=== PATIENT | male | born 1985 | race Caucasian/White ===

== ENCOUNTER → 2016-07-09 | Outpatient (CLI) | payer OTHER ==
[~2016-07-09] VITALS: Ht 175.3 cm; Wt 74.7 kg
[~2016-07-09] MED LIST: CLAR1TAB2 PO; FLON1SPR; LIDOCAINE 2% INJ 100 MG/5 ML SDV (FOR ANES.) As Ordered ONE; NS 1,000 ML IV SCH; OMEP40CA2 PO; PROPOFOL 200 MG/20 ML VIAL As Ordered ONE
--- NOTE | 2016-07-09 14:00 | ROOR ---
Patient Name: Max Wiley Procedure Date: 07/09/2016 1:34 PM Date of : 1985 Age: 31 Room: [facility] Gender: Male Note Status: Finalized Procedure: Upper GI endoscopy Indications: Heartburn, Globus sensation Providers: Boni MILLER MD Referring MD: EDGAR Hughes Requesting Provider: Medicines: Monitored Anesthesia Care Complications: No immediate complications. Procedure: Pre-Anesthesia Assessment: - The heart rate, respiratory rate, oxygen saturations, blood pressure, adequacy of pulmonary ventilation, and response to care were monitored throughout the procedure. The Endoscope was introduced through the mouth, and advanced to the second part of duodenum. The upper GI endoscopy was accomplished without difficulty. The patient tolerated the procedure well. Findings: The esophagus was normal. The stomach was normal. The examined duodenum was normal. Impression: - Normal esophagus. - Normal stomach. - Normal examined duodenum. - No specimens collected. Recommendation: - Continue present medications. - Increase Prilosec (omeprazole) 40 mg to TWICE a day - (the script was sent to your pharmacy on file) Boni Miller MD Boni MILLER MD 07/09/2016 2:00:10 PM This report has been signed electronically. Number of Addenda: 0 Note Initiated On: 07/09/2016 1:34 PM Estimated Blood Loss: Estimated blood loss: none.
[2016-07-09 14:54] VITALS: BP 114/64
== END | disposition home or self-care (01) ==
LOC: M OPP 12:41
PROVIDERS: ATTEND Internal Medicine Gastroenterology
DX: R12 Heartburn (principal); F45.8 Other somatoform disorders; F17.228 Nicotine dependence, chewing tobacco, with other nicotine-induced disorders; J45.909 Unspecified asthma, uncomplicated; Z79.899 Other long term (current) drug therapy; Z88.2 Allergy status to sulfonamides

== ENCOUNTER → 2017-06-15 | Outpatient (REF) | payer OTHER ==
[~2017-06-15] MED LIST changes: -LIDOCAINE 2% INJ 100 MG/5 ML SDV (FOR ANES.) As Ordered ONE; -NS 1,000 ML IV SCH; -PROPOFOL 200 MG/20 ML VIAL As Ordered ONE
[2017-06-15 12:22] LABS: ALBUMIN/GLOBULIN RATIO 1.38 (1.00-1.93); ALKALINE PHOSPHATASE 51 U/L (45-117); ALT/SGPT 20 U/L (12-78); ANION GAP 6 MEQ/L (8-16); AST/SGOT 27 U/L (7-37); BILIRUBIN,TOTAL 0.4 MG/DL (0.2-1.0); BLOOD UREA NITROGEN 21 MG/DL (7-18); CALCIUM LEVEL 8.8 MG/DL (8.5-10.1); CARBON DIOXIDE LEVEL 31 MEQ/L (21-32); CHLORIDE LEVEL 106 MEQ/L (98-107); CHOLESTEROL LEVEL 248 MG/DL (<200); CREATININE FOR GFR 1.03 MG/DL (0.70-1.30); GLOMERULAR FILTRATION RATE > 60.0 (>60); GLUCOSE, FASTING 88 MG/DL (70-105); POTASSIUM SERUM 4.3 MEQ/L (3.5-5.1); SODIUM LEVEL 143 MEQ/L (136-145); TOTAL PROTEIN 6.9 GM/DL (6.4-8.2); TRIGLYCERIDES LEVEL 118 MG/DL (<150)
== END ==
LOC: M SFHCPLAZ 08:00
PROVIDERS: ATTEND Family Medicine
DX: R79.89 Other specified abnormal findings of blood chemistry (principal); E78.5 Hyperlipidemia, unspecified

== ENCOUNTER → 2017-10-31 | Outpatient (REF) | payer OTHER ==
[2017-10-31 13:32] LABS: HIV 1&2 SCREEN CENTAUR NEGATIVE (NEGATIVE)
[2017-10-31 14:05] LABS: CHLAMYDIA DNA AMPLIFICATION NEGATIVE (NEGATIVE); GC DNA AMPLIFICATION NEGATIVE (NEGATIVE)
[2017-11-01 10:11] LABS: HSV TYPE I IgG SPECIFIC <0.91 index (0.00-0.90); HSV TYPE II IgG SPECIFIC <0.91 index (0.00-0.90)
== END ==
LOC: M SFHCPLAZ 08:08
DX: Z71.1 Person with feared health complaint in whom no diagnosis is made (principal)
CPT/HCPCS: 86695

== ENCOUNTER 2018-10-06 12:43 | Day surgery (SDC) | payer OTHER ==
[~2018-10-06] VITALS: Ht 172.7 cm; Wt 64.9 kg
[~2018-10-06 12:43] MED LIST changes: +NS 1,000 ML IV ONE
--- NOTE | 2018-10-06 13:41 | ROOR ---
Patient Name: Max Wiley Procedure Date: 10/06/2018 1:22 PM Date of : 1985 Age: 33 Room: [facility] Gender: Male Note Status: Finalized Procedure: Upper GI endoscopy Indications: Heartburn, Chronic cough, Globus sensation, Laryngitis (responsive to PPI therapy) Providers: Boni MILLER MD Referring MD: TATE LARA [facility] TATE Ferreira Requesting Provider: Medicines: Monitored Anesthesia Care Complications: No immediate complications. Procedure: Pre-Anesthesia Assessment: - The heart rate, respiratory rate, oxygen saturations, blood pressure, adequacy of pulmonary ventilation, and response to care were monitored throughout the procedure. The Endoscope was introduced through the mouth, and advanced to the second part of duodenum. The upper GI endoscopy was accomplished without difficulty. The patient tolerated the procedure well. Findings: The esophagus was normal. The stomach was normal. The examined duodenum was normal. Biopsies were obtained with cold forceps for evaluation of eosinophilic esophagitis in the entire esophagus. Impression: - Normal esophagus. - Normal stomach. - Normal examined duodenum. - Biopsies were obtained in the entire esophagus. Recommendation: - Use Prilosec (omeprazole) 20 mg PO daily indefinitely. - Telephone endoscopist for pathology results in 2 weeks. - If not interested/unwilling to continue acid suppression medication, then consideration may also be given to antireflux surgery. Please let us know if referral requested. Boni Miller MD Boni MILLER MD 10/06/2018 1:41:39 PM Electronically signed by Boni MILLER MD Number of Addenda: 0 Note Initiated On: 10/06/2018 1:22 PM Estimated Blood Loss: Estimated blood loss: none.
[2018-10-06 14:00] VITALS: BP 128/68
[2018-10-06] MEDS ORDERED: LIDOCAINE 2% INJ 100 MG/5 ML SDV (FOR ANES.) As Ordered ONE (14:00)
[2018-10-06] MEDS ORDERED: PROPOFOL 200 MG/20 ML VIAL As Ordered ONE (14:00)
== END 2018-10-06 14:10 | disposition home or self-care (01) ==
LOC: M OPP 12:43
PROVIDERS: ATTEND Internal Medicine Gastroenterology
DX: R12 Heartburn (principal); R05 Cough; J04.0 Acute laryngitis; F45.8 Other somatoform disorders

== ENCOUNTER → 2020-10-31 | Outpatient (CLI) | payer OTHER, BC ==
[~2020-10-31] MED LIST changes: -NS 1,000 ML IV ONE; -OMEP40CA2 PO; +OMEP40CA97 PO
--- NOTE | 2020-10-31 11:15 | REPPI ---
INDICATION: S46.911A MUSCLE STRAIN OF RIGHT SCAPULAR REGION COMPARISON: None. TECHNIQUE: Internal rotation, external rotation, and Y view. FINDINGS: No acute fracture or dislocation. The acromioclavicular and glenohumeral joints are intact. No periarticular calcifications or degenerative changes are appreciated. Sub acromial space is normal. Surrounding soft tissues are unremarkable. IMPRESSION: Normal right shoulder radiographs. <Electronically signed by Bj Genao > 10/31/20 1111
== END ==
LOC: M PLAIMG 10:31
PROVIDERS: ATTEND Nurse Practitioner Family
DX: S46.911A Strain of unspecified muscle, fascia and tendon at shoulder and upper arm level, right arm, initial encounter (principal); X58.XXXA Exposure to other specified factors, initial encounter; Y92.89 Other specified places as the place of occurrence of the external cause; Y93.9 Activity, unspecified; Y99.9 Unspecified external cause status

== ENCOUNTER → 2021-05-23 | Outpatient (REF) | payer BC ==
[~2021-05-23] MED LIST changes: +OMEP40CA4 PO; -OMEP40CA97 PO
[2021-05-23 22:52] LABS: RSV AMPLIFICATION NEGATIVE (NEGATIVE)
== END ==
LOC: M LAB REF 21:44
PROVIDERS: ATTEND Physician Assistant Medical
DX: R50.9 Fever, unspecified (principal)